=== PATIENT | male | born 1995 | race African-American/Black ===

== ENCOUNTER 2018-10-02 15:58 | Emergency (ER) | payer SELFPAY ==
[~2018-10-02] VITALS: Ht 194.3 cm; Wt 94.2 kg
[2018-10-02 16:15] VITALS: BP 138/64; PULSE 66; RESP 20; Ht 194.3 cm; Wt 94.2 kg
[2018-10-02] MEDS ORDERED: CEFTRIAXONE 250 MG INJ IM STA (16:58)
[2018-10-02] MEDS ORDERED: AZITHROMYCIN 250 MG TAB PO STA (16:58)
--- NOTE | 2018-10-02 17:22 | ERD ---
ER Documentation Chief Complaint Chief Complaint burning sensation upon urination HPI 23-year-old male presenting with complaints of burning with urination. 2 days ago he was intoxicated and had unprotected sex with a female he does not know. The day after, he started feeling some burning with urination and noticed cloudy urine. He has noticed some minimal discharge from his penis as well. He denies any rashes or sores in the genital area. No associated abdominal pain, fever, chills. No vomiting or diarrhea. No history of STD. ROS All systems reviewed and are negative except as per history of present illness. Allergies Allergies: Coded Allergies: No Known Allergy (Unverified , 10/02/18) PMhx/Soc Medical and Surgical Hx: pt denies Medical Hx, pt denies Surgical Hx Hx Alcohol Use: Yes Hx Tobacco Use: No Smoking Status: Never smoker FmHx Family History: No diabetes Physical Exam Vitals Vital Signs Date Temp Pulse Resp B/P (MAP) Pulse Ox O2 O2 Flow FiO2 Time Delivery Rate 10/02/18 97.3 66 20 138/64 100 16:15 (88) Physical Exam Const: No acute distress Head: Atraumatic Eyes: Normal Conjunctiva ENT: Normal External Ears, Nose and Mouth. Posterior pharynx normal Resp: No respiratory distress Abd: Soft, non tender, non distended. Normal bowel sounds : exam deferred Back: No flank tenderness Neur: Awake and alert Psych: Normal Mood and Affect Results 24 hrs Laboratory Tests Test 10/02/18 16:44 Bedside Urine pH (LAB) 6.0 Bedside Urine Protein (LAB) 3+ Bedside Urine Glucose (UA) Negative Bedside Urine Ketones (LAB) 1+ Bedside Urine Blood 2+ Bedside Urine Nitrite (LAB) Negative Bedside Urine Leukocyte Esterase (L 3+ Current Medications Medications Dose Sig/Mack Start Time Status Last (Trade) Ordered Route PRN Stop Time Admin Dose Reason Admin 1,000 mg ONCE STAT 10/02/18 DC 10/02/18 Azithromycin PO 16:58 17:16 (Zithromax) 10/02/18 16:59 Ceftriaxone 250 mg ONCE STAT 10/02/18 DC 10/02/18 Sodium IM 16:58 17:16 (Rocephin) 10/02/18 16:59 Procedures/MDM EMERGENT LABS AND DIAGNOSTIC STUDIES: Lab Results above were reviewed and interpreted by me. UA: + evidence of infection STD tests pending Urine culture pending Initial Nursing notes reviewed. Previous Medical Records requested via the Electronic Health Record. EMERGENCY DEPARTMENT COURSE / MEDICAL DECISION MAKING: Patient is presenting with dysuria after unprotected sex. He likely has an STD. I recommended treatment with ceftriaxone and azithromycin as his risk for STD is high. He may also have a urine infection but this is less likely. Urine culture and gonorrhea, chlamydia tests were sent and are pending. Return precautions given. Follow-up with PCP recommended. Patient's blood pressure was elevated (>120/80) but appears stable without evidence of hypertensive emergency or urgency. The patient was counseled about the risks of hypertension and urged to pursue outpatient monitoring and therapy within a week with their primary care physician. Departure Diagnosis: Primary Impression: Dysuria Condition: Stable Patient Instructions: Dysuria, Std, Suspected (Culture Only) Referrals: [facility] YOU HAVE RECEIVED A MEDICAL SCREENING EXAM AND THE RESULTS INDICATE THAT YOU DO NOT HAVE A CONDITION THAT REQUIRES URGENT TREATMENT IN THE EMERGENCY DEPARTMENT. FURTHER EVALUATION AND TREATMENT OF YOUR CONDITION CAN WAIT UNTIL YOU ARE SEEN IN YOUR DOCTORS OFFICE WITHIN THE NEXT 1-2 DAYS. IT IS YOUR RESPONSIBILITY TO MAKE AN APPOINTMENT FOR FOLOW-UP CARE. IF YOU HAVE A PRIMARY DOCTOR --you should call your primary doctor and schedule an appointment IF YOU DO NOT HAVE A PRIMARY DOCTOR YOU CAN CALL OUR PHYSICIAN REFERRAL HOTLINE AT IF YOU CAN NOT AFFORD TO SEE A PHYSICIAN YOU CAN CHOSE FROM THE FOLLOWING [facility] [address] [facility] [address] [facility] [address] [facility] [address] [facility] [address] [facility] [facility]. [address] Additional Instructions: Go to your primary care doctor or return to the ER for any worsening symptoms. VLADIMIR MOON MD Oct 02, 2018 17:22
== END 2018-10-02 17:45 | disposition home or self-care (01) ==
LOC: E/R 15:58
DX: R30.0 Dysuria (principal)
CPT/HCPCS: 81001; 87086; 87591; 96372; 99284; J0696; 81003